=== PATIENT | female | born 1985 | race Caucasian/White ===

== ENCOUNTER 2023-04-30 08:17 | Outpatient (CLI) | payer BC ==
[2023-04-30] MEDS ORDERED: iohexoL 240 mgI/mL, 50 ML INFUS..BTL IV ONE (08:33)
== END 2023-04-30 17:14 | disposition home or self-care (01) ==
LOC: SRD 08:17
PROVIDERS: ATTEND Specialist
DX: N92.6 Irregular menstruation, unspecified (principal)
CPT/HCPCS: 74740; Q9966